=== PATIENT | female | born 1965 | race Caucasian/White ===

== ENCOUNTER 2020-08-31 14:39 | Emergency (ER) | payer OTHER ==
[~2020-08-31 14:39] MED LIST: BENTYL 20MG TAB20 MG PO; CIPRO500 MG PO; DULCOLAX5 MG PO; FLAGYL500 MG PO; FLEXERIL 10 MG10 MG PO; FLOMAX0.4 MG PO; MOBIC15 MG PO; ONDANSETRON ODT4 MG PO; ULTRAM50 MG PO; ZOFRAN ODT 4 MG4 MG PO
[2020-08-31 15:05] LABS: HEMOGLOBIN 12.3 gm/dl (12.3-15.3); RED BLOOD COUNT 4.22 M/UL (4.00-5.10); WHITE BLOOD COUNT 6.9 K/UL (4.5-11.0)
[2020-08-31 15:30] LABS: BUN/CREATININE RATIO 12 (0-10)
== END 2020-08-31 20:35 | disposition home or self-care (01) ==
LOC: ER1 14:39
DX: R07.89 Other chest pain (principal); F41.9 Anxiety disorder, unspecified; E11.9 Type 2 diabetes mellitus without complications; I10 Essential (primary) hypertension; E78.5 Hyperlipidemia, unspecified
CPT/HCPCS: 71045; 80053; 82550; 82553; 83874; 84484; 85025; 93005; 99285